=== PATIENT | male | born 1970 | race Caucasian/White ===

== ENCOUNTER → 2021-10-11 | Outpatient (CLI) | payer OTHER, BC ==
[~2021-10-11] MED LIST: ASPIRIN EC325 MG PO
== END ==
LOC: KOH-I 08:30
DX: S06.0X0A Concussion without loss of consciousness, initial encounter (principal); S13.4XXA Sprain of ligaments of cervical spine, initial encounter; E66.01 Morbid (severe) obesity due to excess calories; I10 Essential (primary) hypertension; E78.5 Hyperlipidemia, unspecified; Z68.41 Body mass index [BMI] 40.0-44.9, adult
CPT/HCPCS: 70450

== ENCOUNTER 2021-11-24 17:09 | Emergency (ER) | payer BC ==
[2021-11-24 17:49] LABS: HEMOGLOBIN 16.1 gm/dl (14.0-17.5); RED BLOOD COUNT 5.25 M/UL (4.20-5.50); WHITE BLOOD COUNT 11.5 K/UL (4.5-11.0)
[2021-11-24] MEDS ORDERED: HYDROCODONE-AC1 EACH PO (19:35)
[2021-11-24] MEDS ORDERED: ZOFRAN ODT 4 MG4 MG PO (19:39)
[2021-11-24] MEDS ORDERED: FLOMAX0.4 MG PO (19:39)
== END 2021-11-24 20:05 | disposition home or self-care (01) ==
LOC: ER1 17:09
PROVIDERS: Physician Assistant
DX: N13.2 Hydronephrosis with renal and ureteral calculous obstruction (principal); E78.5 Hyperlipidemia, unspecified; I10 Essential (primary) hypertension
CPT/HCPCS: 80053; 81001; 85025; 96374; 96375; 99284; J1200; J2405; J2930